=== PATIENT | male | born 1990 | race African-American/Black ===

== ENCOUNTER 2018-08-17 15:14 | Emergency (ER) | payer OTHER ==
--- NOTE | 2018-08-17 16:33 | UC ---
Complaint Male HPI - HPI Summary HPI Summary: Patient presents to urgent care stating for 2-3 days has intermittently dysuria , urgency, and frequency. Patient states she's also had mild pressure over his bladder. Patient denies nausea vomiting. No back pain. Patient states he does sometimes feel like is a little dribbling from his penis, states is clear. No blood. no lesions. Patient states he had unprotected intercourse couple weeks ago. No known exposure to STD. Patient states is going and he had his blood work checked for things but one is his urine checked for gonorrhea and chlamydia. Patient denies testicular pain. No rectal pain. No diarrhea. Patient states he has had UTIs in the past and this felt similar. Patient's medications reviewed this visit. Patient is not taking anything for pain. - History of Current Complaint Chief Complaint: UCGU Stated Complaint: URINARY COMPLAINT Time Seen by Provider: 08/17/18 16:01 Hx Obtained From: Patient Onset/Duration: Sudden Onset Timing: Intermittent Severity Initially: Mild Severity Currently: None Pain Intensity: 0 - Allergies/Home Medications Allergies/Adverse Reactions: Allergies Allergy/AdvReac Type Severity Reaction Status Date / Time Penicillins Allergy Itching Verified 08/17/18 15:57 PMH/Surg Hx/FS Hx/Imm Hx Previously Healthy: Yes - Surgical History Surgical History: None - Family History Known Family History: Positive: Non-Contributory - Social History Occupation: Employed Full-time Lives: With Family Alcohol Use: None Substance Use Type: None Smoking Status (MU): Never Smoked Tobacco Review of Systems All Other Systems Reviewed And Are Negative: Yes Constitutional: Positive: Negative Skin: Positive: Negative Genitourinary: Positive: Dysuria, Urgency, Vaginal/Penile Discharge Physical Exam - Summary Physical Exam Summary: Vital Signs Reviewed: Yes A+Ox3, no distress Eyes: Conjunctiva Clear ENT: Hearing grossly normal neck: supple Respiratory: Positive: No respiratory distress, No accessory muscle use Cardiovascular: skin color reflect adequate perfusion RRR nl s1, s2 no m/r abd soft + BS no guarding, no rebound, no cva : CIARAN sultana - testes down, no hernia, no lesions, no pain with exam of epidyimis, no discharge Musculoskeletal Exam: MANTILLA x 4 without difficulty Neurological: Positive: Alert, ambulatory without difficulty Psychological: Positive: Normal Response To Family Skin: Positive: no rash, no ecchymosis Triage Information Reviewed: Yes Vital Signs: Initial Vital Signs Temp 98.6 F 08/17/18 15:57 Pulse 112 08/17/18 15:57 Resp 24 08/17/18 15:57 BP 156/77 08/17/18 15:57 Pulse Ox 100 08/17/18 15:57 Complaint Male Course/Dx - Course Course Of Treatment: Patient presents with intermittent dysuria, frequency, urgency 12-3 days. Patient also states he's had some dribbling from his penis that has been clear. Patient with mild lower belly pain earlier. None currently. No nausea vomiting. No back pain. Patient requesting testing for GC and chlamydia. Patient has had unprotected sex with no known exposure. Patient's reported history of urinary tract infection about 3 years ago and states this feels similar. On exam vital signs are stable. Patient without any abnormalities. Patient does have 1+ leuk and blood in his urine. We'll start patient on doxycycline. This will cover Chlamydia as well as here. We'll send urine culture, GC, chlamydia, and trichomonas. Patient weighs cultures may take 4-5 days to come back. Patient aware will need a second antibiotic if his gonorrhea is positive. Discussed with patient using condoms and states it crutches. Patient states understanding agreement with plan. Return precautions discussed. - Differential Dx/Diagnosis Provider Diagnosis: Dysuria Discharge - Sign-Out/Discharge Documenting (check all that apply): Patient Departure All imaging exams completed and their final reports reviewed: No Studies - Discharge Plan Condition: Stable Disposition: HOME Prescriptions: DOXYcycline CAP(*) [DOXYcycline 100MG CAP(*)] 100 mg PO BID #20 cap Patient Education Materials: Dysuria (ED) Referrals: [facility] [Outside] No Primary Care Phys,[facility] [Primary Care Provider] - Additional Instructions: As discussed you have tests sent to the lab to evaluate you for gonorrhea, chlamydia, and trichamonos. These are all sexually transmitted disease. If you ahve any positive results you will receive a call form a care merchandise flow team member These tests take 4-5 days Your urine has also been sent for further testing for a urinary tract infection It is recommended you take antibiotics as prescribed. this will treat a urinary tract infection and Chlamydia. You will require different antibiotics for other infections - a prescription will be called in for you Stay well hydrated. Drink plenty of non-alcoholic, non-caffinated beverages You have been given the name of the [facility] emergency department center - if you need a primary doctor, this office will help you schedule an appointment If you develop fever, increased pain, abdominal pain, vomiting or other concerns - go to the emergency department or return here - Billing Disposition and Condition Condition: STABLE Disposition: Home
[2018-08-21 12:53] LABS: Neisseria gonorrhoeae (GC) RNA Negative (Negative)
[2018-08-21 21:22] LABS: Trichomonas vaginalis SOURCE: Urine (Male Patient)
== END 2018-08-17 16:56 | disposition home or self-care (01) ==
LOC: UCCORT 15:14
DX: R30.0 Dysuria (principal); Z88.0 Allergy status to penicillin
CPT/HCPCS: 81003; 87086; 87491; 87591; 87661; 99202; G0463